=== PATIENT | female | born 2000 | race Caucasian/White ===

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

== ENCOUNTER 2025-01-10 16:47 | Emergency (ER) | payer MEDICAID ==
[~2025-01-10] VITALS: Ht 157.5 cm; Wt 46.6 kg
[2025-01-10 16:54] VITALS: BP 101/59; PULSE 78; RESP 18; TEMP 97.8; O2SAT 100
--- NOTE | 2025-01-10 17:14 | Physician Documentation ---
History of Present Illness ~ Chief Complaint: Abscess Stated Complaint: FACIAL CYST Time Seen by MD: 17:13 Primary Medical Doctor: none HPI Right painful cystic lesion to the right upper cheek apprx 1 cm x .5 cm x 3 months. Tetanus Within 5 Years: Yes Medication Reconciliation Allergies: Coded Allergies: No Known Allergies (Unverified , 01/10/25) Scheduled Cephalexin*Monohydrate* (Keflex*), 2 CAP PO TID Dexmethylphenidate HCl (Focalin), PO DAILY, (Reported) Nitrofurantoin Macrocrystal (Macrodantin), 1 CAP PO Q12H Nitrofurantoin Monohyd/M-Cryst (Macrobid 100 mg Capsule), 1 CAP PO Q12H Past Medical History Past Medical History: UTI Past Surgical History: noncontributory Alcohol Use: None Drug Use: none Lives with: Mother Lives In: Home Occupation: student Review of Systems All Other Systems at this time: Reviewed and Negative ENT Facial lesion Physical Exam Vital Signs: Temperature: 97.8, Source: Oral, Heart Rate: 78, Respiratory Rate: 18, BP: 101/59, Pulse Oximetry: 100, Weight: 46.600 Oxygen Flow Rate: 0 General Appearance: alert, WD/WN, mild distress EENT: other (1 x 0.5 cm non fluctuant firm lesion to the right cheek with mild erythema) Neck: normal inspection Cardiovascular: regular rate, rhythm Respiratory: no respiratory distress Skin: other (The above) Skin Non pustular non purpuric non dermatomal Neurologic: oriented x4 Lymphatic: normal inspection Progress Results/Orders Results/Orders Vital Signs 01/10/25 16:54 Temp 97.8 Pulse 78 Resp 18 B/P (MAP) 101/59 Pulse Ox 100 O2 Flow Rate 0 Medical Decision Making Additional information obtaine: N/A Findings 24-year-old female with a lesion to her right cheek for three months having difficulty finding quartz miner blasting for incision versus excision. Clinical exam consistent with a dermoid versus epidermal cyst requiring excision and pathology with closure. Discussed the risks alternatives and benefits and shared d ecision-making to defer this to Dermatology. No clear clinical presentation for abscess. Mild erythema surrounding the firm cystic lesion to be mitigated with Keflex. Patient's safely discharged from the emergency department with aftercare instructions. Differential Dx:Considerations: Include: Abscess, Cellulitis, Other (Dermoid versus epidermal cyst, lipoma can not exclude tumor mass) Departure Disposition: 01 HOME / SELF CARE / HOMELESS Impression: Primary Impression: Cyst of face Condition: Stable Additional Instructions: Please follow up with [facility] for referral to Dermatology. Urine needed definitive management for excision and pathology suspected dermoid cyst. Referrals: NO PRIMARY CARE PROVIDER (PCP) [facility] Prescriptions Cephalexin*Monohydrate* (Keflex*) 500 Mg Capsule 2 CAP PO TID, #21 CAP Prov: ANIVAL PATTERSON 01/10/25 Education Educated: Patient Educated regarding: diagnosis, treatment, prognosis, need for follow up (Dermatology) Signature Scribe Signature: . Attestation: . ANIVAL PATTERSON Jan 10, 2025 17:14
[2025-01-10] MEDS ORDERED: CEPH-585 PO (17:19)
== END 2025-01-10 17:36 | disposition home or self-care (01) ==
LOC: ER 16:48
DX: L98.9 Disorder of the skin and subcutaneous tissue, unspecified (principal); Z87.440 Personal history of urinary (tract) infections; Z79.899 Other long term (current) drug therapy
CPT/HCPCS: 99283